=== PATIENT | female | born 1960 | race Caucasian/White ===

== ENCOUNTER 2018-05-01 16:30 | Emergency (ER) | payer BC ==
[~2018-05-01] VITALS: Ht 180.3 cm; Wt 83.5 kg
[2018-05-01 16:39] VITALS: BP_SYST 123
[2018-05-01 18:45] VITALS: BP_SYST 122
== END 2018-05-01 18:45 | disposition home or self-care (01) ==
LOC: SED 16:30
DX: R60.0 Localized edema (principal); R03.0 Elevated blood-pressure reading, without diagnosis of hypertension
CPT/HCPCS: 93971; 99284